=== PATIENT | male | born 1960 | race Caucasian/White ===

== ENCOUNTER 2022-08-25 06:48 | Emergency (ER) | payer BC, OTHER ==
--- NOTE | 2022-08-25 07:21 | ED Physician Documentation ---
PD HPI CHEST PAIN - Stated complaint Stated Complaint: CHEST PX - Chief complaint Chief Complaint: Cardiac - History obtained from History obtained from: Patient - Additional information Additional information: Patient is a 61-year-old male with a history of hypertension presenting for evaluation of left-sided chest pain that started at 5 AM as he was brushing his teeth getting ready for work. He describes it as a cramping. He reports some radiation to his left shoulder. It has dulled since onset. He denies dizziness, difficulty breathing, nausea, vomiting, diarrhea. It is worse with stretching movements - denies known injury. He denies any known alleviating factors. He takes daily aspirin and has taken that today. 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 Denies any previous cardiac work-up.Denies recent travel, leg swelling, history of PE or DVT. Review of Systems Constitutional: denies: Fever Cardiac: reports: Chest pain / pressure Respiratory: denies: Dyspnea, Cough GI: denies: Abdominal Pain, Nausea, Vomiting Musculoskeletal: denies: Back pain, Extremity swelling Neurologic: denies: Headache PD PAST MEDICAL HISTORY - Past Medical History Cardiovascular: None Respiratory: None Endocrine/Autoimmune: None GI: None : None HEENT: None Psych: None Musculoskeletal: Osteoarthritis, Other Derm: None - Past Surgical History Ortho: Carpal Tunnel surgery - Present Medications Home Medications: Ambulatory Orders Medication Instructions Recorded Confirmed Aspirin [Gus] 325 mg PO ONCE 08/25/22 08/25/22 Multivitamin/Iron/Folic Acid 1 tab PO DAILY 08/25/22 08/25/22 [Centrum Adults Tablet] - Allergies Allergies/Adverse Reactions: Allergies Allergy/AdvReac Type Severity Reaction Status Date / Time No Known Drug Allergies Allergy Verified 10/10/13 14:13 PD ED PE NORMAL - General General: Alert and oriented X 3, No acute distress, Well developed/nourished - HEENT HEENT: Atraumatic, Moist mucous membranes - Neck Neck: Supple, no meningeal sign - Cardiac Cardiac: RRR, No murmur, Strong equal pulses, Other (No chest wall tenderness, rashes or crepitus) - Respiratory Respiratory: No respiratory distress, Clear bilaterally - Abdomen Abdomen: Normal bowel sounds, Soft, Non tender, Non distended - Derm Derm: Warm and dry - Extremities Extremities: No edema - Neuro Neuro: Normal speech Results - Vitals Vitals: Vital Signs - 24 hr 08/25/22 08/25/22 08/25/22 09:26 10:12 10:18 Temperature 36.9 C Heart Rate 58 L 55 L Respiratory 11 L 20 Rate Blood Pressure 162/62 H 162/62 H O2 Saturation 97 96 Oxygen O2 Source Room air - EKG (time done) 0650 Rate: Rate (enter#) (61) Rhythm: NSR [place]: LAD Intervals: Other (QTC 486) Ischemia: No: ST elevation c/w ischemia, ST depression Compare to prior EKG: Old EKG unavailable 1009 Rate: Rate (enter#) (58) Rhythm: Sinus bradycardia Ischemia: No: ST elevation c/w ischemia, ST depression - Labs Labs: Laboratory Tests 08/25/22 08/25/22 08/25/22 07:16 07:16 07:16 WBC 6.8 RBC 4.97 Hgb 15.1 Hct 43.6 MCV 87.7 MCH 30.4 MCHC 34.6 RDW 12.1 Plt Count 254 MPV 9.2 Neut # (Auto) 3.7 Lymph # (Auto) 2.0 [place] # (Auto) 0.8 Eos # (Auto) 0.3 Baso # (Auto) 0.1 Absolute Nucleated RBC 0.00 Nucleated RBC % 0.0 Sodium 137 Potassium 4.0 Chloride 105 Carbon Dioxide 25 Anion Gap 7.0 BUN 32 H Creatinine 0.8 Estimated GFR (MDRD) 99 Glucose 110 H Calcium 9.3 Magnesium 2.1 Total Bilirubin 0.9 AST 21 ALT 29 Alkaline Phosphatase 37 L Troponin I High Sens 5.2 Total Protein 7.3 Albumin 4.1 Globulin 3.2 Albumin/Globulin Ratio 1.3 Lipase 129 H 08/25/22 09:30 WBC RBC Hgb Hct MCV MCH MCHC RDW Plt Count MPV Neut # (Auto) Lymph # (Auto) [place] # (Auto) Eos # (Auto) Baso # (Auto) Absolute Nucleated RBC Nucleated RBC % Sodium Potassium Chloride Carbon Dioxide Anion Gap BUN Creatinine Estimated GFR (MDRD) Glucose Calcium Magnesium Total Bilirubin AST ALT Alkaline Phosphatase Troponin I High Sens 5.1 Total Protein Albumin Globulin Albumin/Globulin Ratio Lipase PD MEDICAL DECISION MAKING - ED course Complexity details: reviewed results, re-evaluated patient, d/w patient ED course: Patient brought in for evaluation of chest pain that started this morning. EKG is negative for acute ischemia. Troponin is negative. Chest x-ray is clear. Patient reports symptoms are worse with stretching movements. Repeat EKG and troponin are essentially unchanged. Patient feeling better while here. Symptoms seem atypical for ACS and he is low risk for ACS based on the heart score.Doubt pulmonary embolism as he has no lower extremity swelling or risk factors. Doubt dissection as pain is not migratory. Patient was counseled on need for close follow-up with his primary care doctor as well as concerning symptoms to return for. 0825 - Pt sleeping. Let the patient up to review his results. He reports still having some mild discomfort that he notices when he is stretching or moving in certain ways in the bed.Discussed plan for repeat troponin. Initial high-sensitivity troponin is negative. Patient is considered low risk for ACS based on the heart score. Departure - Departure Disposition: 01 Home, Self Care Clinical Impression: Chest pain Condition: Stable Instructions: ED Chest Pain Atypical Unkn Cause Follow-Up: Bryant He MD [Primary Care Provider] - Comments: The exact cause of your chest pain is unclear. Your EKG And cardiac markers do not show signs of a heart attack at this time. However you may need further testing of your heart including a stress test. I recommend calling your primary care doctor today to arrange for close follow-up. If you have any worsening symptoms please return to the emergency department. Your chest x-ray is clear with no signs of pneumonia or fluid in your lungs. Forms: Activity restrictions Discharge Date/Time: 08/25/22 10:25
[2022-08-25 07:31] LABS: BASOPHILS # (AUTO) 0.1 10^3/uL (0.0-0.1); BASOPHILS % (AUTO) 1.2 %; EOSINOPHILS # (AUTO) 0.3 10^3/uL (0.0-0.7); EOSINOPHILS % (AUTO) 4.7 %; HCT - HEMATOCRIT 43.6 % (42.0-52.0); HGB - HEMOGLOBIN 15.1 g/dL (14.0-18.0); LYMPHOCYTES % (AUTO) 28.7 %; MEAN CORPUSCULAR HEMOGLOBIN 30.4 pg (27.0-31.0); MEAN CORPUSCULAR HGB CONC 34.6 g/dL (32.0-36.0); MEAN CORPUSCULAR VOLUME 87.7 fL (80.0-94.0); MEAN PLATELET VOLUME 9.2 fL (7.4-11.4); MONOCYTES # (AUTO) 0.8 10^3/uL (0.0-1.0); NEUTROPHILS # (AUTO) 3.7 10^3/uL (1.5-6.6); NEUTROPHILS % (AUTO) 54.3 %; PLT - PLATELET COUNT 254 10^3/uL (130-450); RED BLOOD COUNT 4.97 10^6/uL (4.70-6.10); RED CELL DISTRIBUTION WIDTH 12.1 % (12.0-15.0); WHITE BLOOD COUNT 6.8 x10^3/uL (4.8-10.8)
[2022-08-25 07:32] LABS: ALBUMIN 4.1 g/dL (3.2-5.5); ALBUMIN/GLOBULIN RATIO 1.3 (1.0-2.2); BILIRUBIN,TOTAL 0.9 mg/dL (0.2-1.0); CALCIUM 9.3 mg/dL (8.5-10.3); CREATININE 0.8 mg/dL (0.6-1.2); MAGNESIUM 2.1 mg/dL (1.7-2.8); TOTAL PROTEIN 7.3 g/dL (6.7-8.2)
--- NOTE | 2022-08-25 08:15 | XRAY Report ---
PROCEDURE: Chest 1 View X-Ray INDICATIONS: CP TECHNIQUE: One view of the chest was acquired. COMPARISON: None FINDINGS: Surgical changes and devices: None. Lungs and pleura: No pleural effusions or pneumothorax. Lungs are clear. Mediastinum: Mediastinal contours appear normal. Heart size is borderline enlarged. Bones and chest wall: No suspicious bony lesions. Overlying soft tissues appear unremarkable. IMPRESSION: No acute pulmonary process. The above findings are concordant with preliminary report. Reviewed by: Laurie Jackson MD on 08/25/2022 8:13 AM PDT Approved by: Laurie Jackson MD on 08/25/2022 8:13 AM PDT Station ID: [id number]
[2022-08-25 09:26] VITALS: BP 162/62
== END 2022-08-25 10:25 | disposition home or self-care (01) ==
LOC: ED 06:48
DX: R07.9 Chest pain, unspecified (principal); I10 Essential (primary) hypertension
CPT/HCPCS: 36415; 80053; 83690; 83735; 84484; 85025; 93005; 99283; 99284

== ENCOUNTER 2023-10-20 19:26 | Inpatient (IN) | payer BC ==
[2023-10-20 20:22] LABS: BASOPHILS % (AUTO) 0.3 %; EOSINOPHILS % (AUTO) 0.2 %; HCT - HEMATOCRIT 43.5 % (42.0-52.0); HGB - HEMOGLOBIN 13.9 g/dL (14.0-18.0); LYMPHOCYTES % (AUTO) 7.5 %; MEAN CORPUSCULAR HEMOGLOBIN 29.1 pg (27.0-31.0); MEAN CORPUSCULAR VOLUME 91.2 fL (80.0-94.0); MEAN PLATELET VOLUME 9.1 fL (7.4-11.4); MONOCYTES % (AUTO) 10.6 %; NEUTROPHILS % (AUTO) 81.1 %; PLT - PLATELET COUNT 246 10^3/uL (130-450); RED BLOOD COUNT 4.77 10^6/uL (4.70-6.10); RED CELL DISTRIBUTION WIDTH 12.2 % (12.0-15.0); WHITE BLOOD COUNT 15.2 x10^3/uL (4.8-10.8)
[2023-10-20 20:24] LABS: ABNORMAL LYMPHS % (MANUAL) 0 %; BAND NEUTROPHILS % (MANUAL) 0 %
[2023-10-20 20:33] LABS: BILIRUBIN,URINE NEGATIVE (NEGATIVE); CLARITY,URINE CLEAR (CLEAR); GLUCOSE, URINE (UA) NEGATIVE (NEGATIVE); KETONES,URINE (UA) 40 mg/dL (NEGATIVE); LEUKOCYTE ESTERASE, URINE NEGATIVE (NEGATIVE); NITRITE,URINE NEGATIVE (NEGATIVE); OCCULT BLOOD,URINE NEGATIVE (NEGATIVE); PROTEIN,URINE TRACE mg/dL (NEGATIVE); UROBILINOGEN,URINE 2 E.U./dL (NORMAL)
[2023-10-20 20:36] LABS: ALBUMIN 4.4 g/dL (3.2-5.5); ALBUMIN/GLOBULIN RATIO 1.8 (1.0-2.2); CALCIUM 9.6 mg/dL (8.5-10.3); CREATININE 0.9 mg/dL (0.6-1.3); TOTAL PROTEIN 6.9 g/dL (6.4-8.9)
[2023-10-20 20:43] LABS: LYMPHOCYTES # (MANUAL) 1.5 10^3/uL (1.5-3.5); LYMPHOCYTES % (MANUAL) 5 %; MONOCYTES # (MANUAL) 2.4 10^3/uL (0.0-1.0); NEUTROPHILS # (MANUAL) 11.2 10^3/uL (1.5-6.6); REACTIVE LYMPHS % (MANUAL) 5 %
[2023-10-20 20:44] LABS: DIFFERENTIAL COMMENT MANUAL DIFFERENTIAL; PLATELET ESTIMATE, MANUAL NORMAL (130-450,000) (NORMAL); PLATELET MORPHOLOGY NORMAL APPEARANCE (NORMAL); RBC MORPHOLOGY (MULTIPLE) NORMAL APPEARANCE (NORMAL)
[2023-10-20] MEDS ORDERED: MORPHINE 2 MG/ML CARPUJECT IVP STA (22:44)
[2023-10-20] MEDS ORDERED: SODIUM CHLORIDE 0.9% 1,000 ML IV STA (22:44)
[2023-10-20] MEDS ORDERED: ONDANSETRON 4 MG/2 ML VIAL IVP STA (22:44)
[2023-10-20] MEDS ORDERED: ACETAMINOPHEN 325 MG TABLET PO STA (23:19)
--- NOTE | 2023-10-20 23:23 | ED Physician Documentation ---
PD HPI ABD PAIN - Stated complaint Stated Complaint: ABD PX - Chief complaint Chief Complaint: Abd Pain - History obtained from History obtained from: Patient - Additional information Additional information: Patient is a 63-year-old male with a history of hypertension presenting for evaluation of right lower quadrant abdominal pain that has been present since Thursday. He has been worsening. He did eat breakfast but has had a decreased appetite throughout the day. Moving and changing positions makes it worse. No associated nausea, vomiting or diarrhea. No dysuria or hematuria. Has noted a fever tonight. Denies prior abdominal surgeries. Review of Systems Constitutional: reports: Fever Cardiac: denies: Chest pain / pressure Respiratory: denies: Dyspnea GI: reports: Abdominal Pain. denies: Vomiting PD PAST MEDICAL HISTORY - Past Medical History Cardiovascular: None Respiratory: None Endocrine/Autoimmune: None GI: None : None HEENT: None Psych: None Musculoskeletal: Osteoarthritis, Other Derm: None - Past Surgical History Ortho: Carpal Tunnel surgery - Present Medications Home Medications: Ambulatory Orders Medication Instructions Recorded Confirmed Aspirin [Gus] 325 mg PO ONCE 08/25/22 08/25/22 Multivitamin/Iron/Folic Acid 1 tab PO DAILY 08/25/22 08/25/22 [Centrum Adults Tablet] - Allergies Allergies/Adverse Reactions: Allergies Allergy/AdvReac Type Severity Reaction Status Date / Time No Known Drug Allergies Allergy Verified 10/20/23 20:07 - Social History Does the pt smoke?: No Smoking Status: Never smoker PD ED PE NORMAL - General General: Alert and oriented X 3, No acute distress, Well developed/nourished - HEENT HEENT: Atraumatic, Moist mucous membranes, Pharynx benign - Neck Neck: Supple, no meningeal sign - Cardiac Cardiac: RRR, No murmur - Respiratory Respiratory: No respiratory distress, Clear bilaterally - Abdomen Abdomen: Normal bowel sounds, Soft, Non distended, Other (Right lower quadrant abdominal tenderness, no mass) - Derm Derm: Warm and dry - Extremities Extremities: No edema Results - Vitals Vitals: Vital Signs - 24 hr 10/20/23 10/20/23 10/21/23 19:59 23:27 01:00 Temperature 38.0 C H 37.7 C Heart Rate 105 H 84 85 Heart Rate [ Brachial] Respiratory 17 17 16 Rate Blood Pressure 147/57 H 126/63 138/59 H Blood Pressure [Right Brachial artery] O2 Saturation 97 97 94 10/21/23 10/21/23 10/21/23 02:00 04:00 04:31 Temperature 37.0 C Heart Rate 77 78 Heart Rate [ 85 Brachial] Respiratory 16 18 18 Rate Blood Pressure 121/60 137/61 H Blood Pressure 129/67 [Right Brachial artery] O2 Saturation 95 98 96 Oxygen O2 Source Room air - Labs Labs: Laboratory Tests 10/20/23 10/20/23 10/20/23 20:15 20:17 20:17 WBC 15.2 H RBC 4.77 Hgb 13.9 L Hct 43.5 MCV 91.2 MCH 29.1 MCHC 32.0 RDW 12.2 Plt Count 246 MPV 9.1 Neut # (Auto) Not Reportable Lymph # (Auto) Not Reportable [place] # (Auto) Not Reportable Eos # (Auto) Not Reportable Baso # (Auto) Not Reportable Absolute Nucleated RBC Not Reportable Total Counted 100 Band Neuts % (Manual) 0 Reactive Lymphs % (Man) 5 Abnorm Lymph % (Manual) 0 Nucleated RBC % Not Reportable Neutrophils # (Manual) 11.2 H Lymphocytes # (Manual) 1.5 Monocytes # (Manual) 2.4 H Eosinophils # (Manual) 0.0 Basophils # (Manual) 0.0 Differential Comment MANUAL DIFFERENTIAL Platelet Estimate NORMAL (130-450,000) Platelet Morphology NORMAL APPEARANCE RBC Morph Micro Appear NORMAL APPEARANCE Sodium 134 L Potassium 4.0 Chloride 100 L Carbon Dioxide 26 Anion Gap 8.0 BUN 14 Creatinine 0.9 Estimated GFR (MDRD) 86 L Glucose 111 H Lactic Acid Calcium 9.6 Total Bilirubin 2.0 H AST 13 ALT 14 Alkaline Phosphatase 39 L Total Protein 6.9 Albumin 4.4 Globulin 2.5 Albumin/Globulin Ratio 1.8 Lipase 12 Urine Color DARK YELLOW Urine Clarity CLEAR Urine pH 7.0 Ur Specific [place] 1.010 Urine Protein TRACE Urine Glucose (UA) NEGATIVE Urine Ketones 40 H Urine Occult Blood NEGATIVE Urine Nitrite NEGATIVE Urine Bilirubin NEGATIVE Urine Urobilinogen 2 H Ur Leukocyte Esterase NEGATIVE Ur Microscopic Review NOT INDICATED Urine Culture Comments NOT INDICATED 10/20/23 23:00 WBC RBC Hgb Hct MCV MCH MCHC RDW Plt Count MPV Neut # (Auto) Lymph # (Auto) [place] # (Auto) Eos # (Auto) Baso # (Auto) Absolute Nucleated RBC Total Counted Band Neuts % (Manual) Reactive Lymphs % (Man) Abnorm Lymph % (Manual) Nucleated RBC % Neutrophils # (Manual) Lymphocytes # (Manual) Monocytes # (Manual) Eosinophils # (Manual) Basophils # (Manual) Differential Comment Platelet Estimate Platelet Morphology RBC Morph Micro Appear Sodium Potassium Chloride Carbon Dioxide Anion Gap BUN Creatinine Estimated GFR (MDRD) Glucose Lactic Acid 0.8 Calcium Total Bilirubin AST ALT Alkaline Phosphatase Total Protein Albumin Globulin Albumin/Globulin Ratio Lipase Urine Color Urine Clarity Urine pH Ur Specific [place] Urine Protein Urine Glucose (UA) Urine Ketones Urine Occult Blood Urine Nitrite Urine Bilirubin Urine Urobilinogen Ur Leukocyte Esterase Ur Microscopic Review Urine Culture Comments PD Medical Decision Making - ED course Complexity details: reviewed results, re-evaluated patient, d/w patient, d/w family ED course: Patient is a 63-year-old male presenting for evaluation of right lower quadrant abdominal pain since Thursday. Patient does have a fever here. Labs were obtained including CBC demonstrating a WBC of 15. Lactic is negative. Blood cultures have been drawn. Chemistries reviewed. CT of the abdomen and pelvis was reviewed and demonstrates findings consistent with acute appendicitis. Additionally patient has an incidental finding of an ascending thoracic aortic aneurysm. He appears to be asymptomatic. However I did review both of these results with the patient. He understands that he will be admitted for the appendicitis. He also understands that he will need follow-up for the aneurysm and that given its size may need repair. He understands the risks of an aneurysm. Family members also at the bedside. He does not have any symptoms today to suggest a leak or rupture. Patient was given IV antibiotics. He does not appear septic. Consulted with on-call general surgery. Pain controlled with IV morphine. 0245 - D/W Dr. Verma. Agrees with antibiotic choice. He will admit the patient. Plan for OR sometime today. I reviewed CT findings with the patient including findings of acute appendicitis as well as findings of an ascending thoracic aortic aneurysm at 6 cm. I explained to the patient and his family member at the bedside that he needs close follow-up and referral for this aneurysm Given its size. He does not have any chest pain or upper back pain to suggest symptoms of rupture. Departure - Departure Disposition: 66 [facility] DC/Xfer Clinical Impression: Acute appendicitis Thoracic aortic aneurysm Qualifiers: Thoracic aorta location: ascending aorta Presence of rupture: without rupture Qualified Code(s): I71.21 - Aneurysm of the ascending aorta, without rupture Condition: Stable
[2023-10-21] MEDS ORDERED: PIPERACILLIN/TAZOBACTAM 3.375 GM in SODIUM CHLORIDE 0.9% MINIBAG 100 ML IV STA (02:38)
[2023-10-21] MEDS ORDERED: SODIUM CHLORIDE 0.9% 1,000 ML IV STA (02:49)
[2023-10-21] MEDS ORDERED: SODIUM CHLORIDE FLUSH 0.9% 10 ML SYRINGE IVP PRN ×2 (03:11→11:10)
[2023-10-21] MEDS ORDERED: ONDANSETRON ODT 4 MG TABLET TL PRN ×2 (03:11→11:10)
[2023-10-21] MEDS ORDERED: MORPHINE 2 MG/ML CARPUJECT IVP STA (03:12)
[2023-10-21] MEDS ORDERED: SODIUM CHLORIDE 0.9% 1,000 ML IV SCH (04:00)
[2023-10-21] MEDS: ACETAMINOPHEN 325 MG TABLET PO PRN (05:19)
[2023-10-21] MEDS ORDERED: iohexoL-300 100 ML VIAL IVP ONE (05:25)
[2023-10-21] MEDS ORDERED: PIPERACILLIN/TAZOBACTAM 3.375 GM in SODIUM CHLORIDE 0.9% MINIBAG 100 ML IV SCH ×2 (06:00→12:00)
[2023-10-21] MEDS: PIPERACILLIN/TAZOBACTAM 3.375 GM in SODIUM CHLORIDE 0.9% MINIBAG 100 ML IV SCH ×2 (07:04→18:16)
[2023-10-21] MEDS ORDERED: BUPIVACAINE 0.25% PF 30 ML VIAL ONE ×2 (07:14→10:56)
[2023-10-21] MEDS ORDERED: BUPIVACAINE 0.25% PF 30 ML VIAL SUBQ ONE ×3 (07:27)
--- NOTE | 2023-10-21 07:27 | HISTORY & PHYSICAL EXAMINATION ---
Chief Complaint - Chief Complaint Chief Complaint: abdominal pain History of Present Illness - Admitted From Admitted From:: ED - History Obtained From Records Reviewed: yes History obtained from: pt Exam Limitations: none - History of Present Illness HPI Comment/Other: progressive abdominal pain over 2 days. now hurts entire abdomen with movement History - Past Medical History Cardiovascular: reports: None Respiratory: reports: None Neuro: reports: Other Endocrine/Autoimmune: reports: None GI: reports: None : reports: None HEENT: reports: None Psych: reports: None Musculoskeletal: reports: Osteoarthritis, Other Derm: reports: None Other Past Medical History: occular migraines, AAA, TINNITIS, glasses, states may have sleep apnea however no testing at this time, urinary hestitancy, chronic back pain r/t fx of back T7-T8 (compression fx) and no sx to back - Past Surgical History General: reports: Colonoscopy Ortho: reports: Carpal Tunnel surgery Meds/Allgy - Home Medications Home Medications: Ambulatory Orders Medication Instructions Recorded Confirmed Aspirin [Gus] 325 mg PO ONCE 08/25/22 08/25/22 Multivitamin/Iron/Folic Acid 1 tab PO DAILY 08/25/22 08/25/22 [Centrum Adults Tablet] - Allergies Allergies/Adverse Reactions: Allergies Allergy/AdvReac Type Severity Reaction Status Date / Time No Known Drug Allergies Allergy Verified 10/20/23 20:07 Review of Systems - Other Findings Other Findings: 10 pt ros as above otherwise unremarkable Exam - Vital Signs Vital Signs: Vital Signs x48h Temp Pulse Pulse Resp BP BP Pulse Ox 10/21/23 04:31 37.0 C 85 18 129/67 96 10/21/23 04:00 78 18 137/61 H 98 10/21/23 02:00 77 16 121/60 95 10/21/23 01:00 85 16 138/59 H 94 10/20/23 23:27 37.7 C 84 17 126/63 97 - Physical Exam General Appearance: positive: No acute distress, Alert Eyes Bilateral: positive: PERRL, EOMI, No scleral icterus ENT: positive: No signs of dehydration Neck: positive: No JVD, Trachea midline Respiratory: positive: No respiratory distress, Breath sounds nml Cardiovascular: positive: Regular rate & rhythm Abdomen: positive: No distention, Other (diffuse tenderness with peritoneal signs) Neurologic/Psychiatric: positive: Oriented x3 Conclusion/Plan - Problem List (1) Appendicitis with perforation Conclusion/Plan: diffuse peritonitis without abscess. plan appendectomy. parq held and consent obtained - Lab Results Fish Bones: 10/20/23 20:17 10/20/23 20:17 - Diagnostic Imaging Results Diagnostic Imaging Results: positive: Read independently (appendicitis with fecaliths and considerable surrounding free fluid consistent with rupture)
[2023-10-21] MEDS ORDERED: PROPOFOL 200 MG/20 ML VIAL IVP ONE (07:30)
[2023-10-21] MEDS ORDERED: fentaNYL 100 MCG/2 ML VIAL ONE (07:30)
[2023-10-21] MEDS ORDERED: ROCURONIUM 50 MG/5 ML VIAL ONE (07:30)
[2023-10-21] MEDS ORDERED: MIDAZOLAM 2 MG/2 ML VIAL ONE (07:30)
--- NOTE | 2023-10-21 07:35 | ANESTHESIA ---
Pre-Anesthesia VS, & Labs - Diagnosis appendicitis - Procedure lap appy Vital Signs: Temp Pulse Resp BP Pulse Ox O2 Flow Rate 37.0 C 85 18 129/67 96 10/21/23 04:31 10/21/23 04:31 10/21/23 04:31 10/21/23 04:31 10/21/23 04:31 Height: 6 ft Weight (kg): 97 kg Body Mass Index: 29.0 BMI Classification: Overweight - Lab Results Current Lab Results: Laboratory Tests 10/20/23 23:00: Lactic Acid 0.8 10/20/23 20:17: Sodium 134 L, Potassium 4.0, Chloride 100 L, Carbon Dioxide 26, Anion Gap 8.0, BUN 14, Creatinine 0.9, Estimated GFR (MDRD) 86 L, Glucose 111 H, Calcium 9.6, Total Bilirubin 2.0 H, AST 13, ALT 14, Alkaline Phosphatase 39 L, Total Protein 6.9, Albumin 4.4, Globulin 2.5, Albumin/Globulin Ratio 1.8, Lipase 12 10/20/23 20:17: WBC 15.2 H, RBC 4.77, Hgb 13.9 L, Hct 43.5, MCV 91.2, MCH 29.1, MCHC 32.0, RDW 12.2, Plt Count 246, MPV 9.1, Neut # (Auto) Not Reportable, Lymph # (Auto) Not Reportable, [place] # (Auto) Not Reportable, Eos # (Auto) Not Rep ortable, Baso # (Auto) Not Reportable, Absolute Nucleated RBC Not Reportable, Total Counted 100, Band Neuts % (Manual) 0, Reactive Lymphs % (Man) 5, Abnorm Lymph % (Manual) 0, Nucleated RBC % Not Reportable, Neutrophils # (Manual) 11.2 H, Lymphocytes # (Manual) 1.5, Monocytes # (Manual) 2.4 H, Eosinophils # (Manual) 0.0, Basophils # (Manual) 0.0, Differential Comment MANUAL DIFFERENTIAL, Platelet Estimate NORMAL (130-450,000), Platelet Morphology NORMAL APPEARANCE, RBC Morph Micro Appear NORMAL APPEARANCE Fish Bones: 10/20/23 20:17 10/20/23 20:17 Home Medications and Allergies Active Medications Acetaminophen (Acetaminophen 325 Mg Tablet) 650 mg PO Q4HR PRN PRN Reason: Pain 1 to 4, or Fever Last Admin: 10/21/23 05:19 Dose: 650 mg Hydromorphone HCl (Hydromorphone 0.5 Mg/0.5 Ml Syringe) 0.5 mg IVP Q2H PRN PRN Reason: Pain 8 to 10 Sodium Chloride (Normal Saline 0.9%) 1,000 mls @ 150 mls/hr IV .Q6H40M STA Stop: 10/21/23 09:28 Last Admin: 10/21/23 03:11 Dose: 150 mls/hr Sodium Chloride (Normal Saline 0.9%) 1,000 mls @ 100 mls/hr IV .Q10H RADHA Piperacillin Sod/Tazobactam (Sod 3.375 gm/ Sodium Chloride) 100 mls @ 25 mls/hr IV Q8H RADHA Last Admin: 10/21/23 07:04 Dose: 25 mls/hr Ondansetron HCl (Ondansetron Odt 4 Mg Tablet) 4 mg TL Q6HR PRN PRN Reason: Nausea / Vomiting Oxycodone HCl (Oxycodone 5 Mg Tablet) 5 mg PO Q4HR PRN PRN Reason: Pain 5 to 7 Sodium Chloride (Sodium Chloride Flush 0.9% 10 Ml Syringe) 10 ml IVP PRN PRN PRN Reason: NEEDED PER PROVIDER ORDERS Sodium Chloride (Sodium Chloride Flush 0.9% 10 Ml Syringe) 10 ml IVP 0100,0900,1700 [facility] Aspirin [Gus] 325 mg PO ONCE 08/25/22 Multivitamin/Iron/Folic Acid [Centrum Adults Tablet] 1 tab PO DAILY 08/25/22 Allergies/Adverse Reactions: Allergies Allergy/AdvReac Type Severity Reaction Status Date / Time No Known Drug Allergies Allergy Verified 10/20/23 20:07 Anes History & Medical History - Anesthetic History Anesthesia Complications: reports: No previous complications - Medical History Cardiovascular: reports: Hypertension Pulmonary: reports: None Gastrointestinal: reports: None Urinary: reports: None Neuro: reports: Other Musculoskeletal: reports: Osteoarthritis, Other Endocrine/Autoimmune: reports: None Blood Disorders: reports: None Skin: reports: None Smoking Status: Never smoker History of Cancer?: No Other Past Medical History: occular migraines, AAA, TINNITIS, glasses, states may have sleep apnea however no testing at this time, urinary hestitancy, chronic back pain r/t fx of back T7-T8 (compression fx) and no sx to back - Surgical History General: reports: Colonoscopy Orthopedic: reports: Carpal Tunnel surgery Exam General: Alert, Oriented x3 Dental: WNL Neck Mobility: Normal Mallampati classification: II Thyromental Distance: greater than 6 cm Respiratory: Lungs clear Cardiovascular: Regular rate Plan Anesthesia Type: General Consent for Procedure(s) Verified and Reviewed: Yes Code Status: Attempt Resuscitation ASA classification: 2-Mild systemic disease Is this case an emergency?: Yes
[2023-10-21] MEDS ORDERED: DEXAMETHASONE 4 MG/ML VIAL ONE (08:11)
[2023-10-21] MEDS ORDERED: ONDANSETRON 4 MG/2 ML VIAL ONE (08:11)
[2023-10-21] MEDS: SODIUM CHLORIDE FLUSH 0.9% 10 ML SYRINGE IVP SCH ×2 (08:13→18:28)
--- NOTE | 2023-10-21 08:35 | CT Report ---
PROCEDURE: ABDOMEN/PELVIS W INDICATIONS: RLQ pain/fever CONTRAST: Omni 300 100ml TECHNIQUE: After the administration of IV contrast, 5 mm thick sections acquired from the diaphragms to the symp hysis. 5 mm thick coronal and sagittal reformats were acquired. For radiation dose reduction, the f ollowing was used: automated exposure control, adjustment of mA and/or kV according to patient size. COMPARISON: None FINDINGS: Image quality: Good Lower chest: Basal scarring and atelectasis. Borderline cardiomegaly. Possible aortic root ectasia is partially seen. Solid organs: In the liver, adrenals, kidneys, back or Guideline subcentimeter lesions are too small to characterize, most commonly cysts. No pathologic dilation of the biliary system or pancreatic duct . Gallbladder is unremarkable. No hydronephrosis. Vessels and lymph nodes: Atherosclerotic calcifications. No abdominal aortic aneurysm or pathologic l ymph nodes by size criteria. Bowel and peritoneum: No evidence of small bowel obstruction. Moderately inflamed appendix, without obstructing stone at the neck. Appendix measures up to 2 cm. Th ere is a moderate degree of surrounding fluid. Mild inflammatory changes around the terminal ileum ma y be reactive to adjacent inflammation. No drainable rim-enhancing abscess at this time. Body wall: Unremarkable Pelvis: Bladder is unremarkable. Prostate is not well evaluated on CT. Small fat-containing right ing uinal hernia. Bones: No acute or suspicious osseous finding. IMPRESSION: Acute appendicitis. Moderate inflammatory changes and edema, with surrounding appendiceal fluid. No d rainable rim-enhancing abscess. Other findings as above. Agree with preliminary report. Reviewed by: Thomas Meléndez MD on 10/21/2023 8:34 AM PST Approved by: Thomas Meléndez MD on 10/21/2023 8:34 AM PST Station ID: [id number]
[2023-10-21] MEDS ORDERED: HYDROmorphone 0.5 MG/0.5 ML SYRINGE IVP PRN ×2 (08:36→11:10)
[2023-10-21] MEDS ORDERED: NALOXONE 0.4 MG/ML VIAL IVP PRN (08:36)
[2023-10-21] MEDS ORDERED: ONDANSETRON 4 MG/2 ML VIAL IVP PRN (08:36)
[2023-10-21] MEDS ORDERED: ATROPINE ABBOJECT 1 MG/10 ML SYRINGE IVP PRN (08:36)
[2023-10-21] MEDS ORDERED: METOCLOPRAMIDE 10 MG/2 ML VIAL IVP PRN (08:36)
[2023-10-21] MEDS ORDERED: fentaNYL 100 MCG/2 ML VIAL IVP PRN (08:36)
[2023-10-21] MEDS ORDERED: MORPHINE 2 MG/ML CARPUJECT IVP PRN (08:36)
[2023-10-21] MEDS ORDERED: ePHEDrine 50 MG/ML VIAL IVP PRN (08:36)
[2023-10-21] MEDS ORDERED: ACETAMINOPHEN 1,000 MG/100 ML 1,000 MG/100 ML BAG IV ONE (08:48)
[2023-10-21] MEDS ORDERED: LACTATED RINGERS 1,000 ML IV SCH (09:00)
[2023-10-21] MEDS ORDERED: PHENYLEPHRINE HCL 0.5 MG/5 ML AMPULE ONE (10:09)
[2023-10-21] MEDS ORDERED: SUGAMMADEX 200 MG/2 ML VIAL IVP ONE (10:33)
[2023-10-21] MEDS ORDERED: oxyCODONE 5 MG TABLET PO PRN (11:10)
[2023-10-21] MEDS ORDERED: ZOLPIDEM 5 MG TABLET PO PRN (11:10)
[2023-10-21] MEDS ORDERED: ACETAMINOPHEN 325 MG TABLET PO PRN (11:10)
[2023-10-21] MEDS ORDERED: LACTATED RINGERS 1,000 ML IV ONE (11:14)
--- NOTE | 2023-10-21 11:19 | OPERATIVE REPORT ---
Operative Report - General Procedure Date: 10/21/23 Planned Procedure: lap appendectomy Pre-Op Diagnosis: ruptured appendix with diffuse peritonitis Procedure Performed: lap converted to open appendectomy Post Op Diagnosis: same. ruptured at base with significant inflammation cecum - Procedure Note Primary Surgeon: odilon pavon Anesthesia Technique: General ET tube, Local Pathology: appendix Estimated Blood Loss (mL): 2 Drain/Tube Type: Other (none) Indications: free ruptured appendix with diffuse peritonitis Findings: as above Complications: none - Other Other Information/Narrative: Patient was prepped identified brought to the operating room and placed in supine position. Sequential compression devices were placed. Antibiotics were running at the time he came to the operating room. He was prepped and draped in a sterile fashion. Local anesthetic was given to incision areas. An infraumbilical incision was made. Dissection proceeded down to the fascia. The fascia was incised lifted upwards and abdomen entered with a Veress needle. CO2 was insufflated to a pressure of 15. A 12 mm Visiport trocar was placed with 30 degree camera. There was no evidence of injury from Veress needle or trocar placement. Under direct vision a 5 mm trocar was placed in the right upper quadrant and a 5 mm trocar was placed mid lower abdomen. The patient had tried to void prior to surgery however his bladder was quite large with nearly a liter of urine. The sigmoid colon was adherent to the cecum. It was carefully mobilized off from the cecum exposing the appendix. The cecum was carefully mobilized allowing better access to the appendix. The mesoappendix was quite large. There was purulence within the abdomen. The appendix was slowly mo bilized off from the retroperitoneum. As appendix was mobilized stool and pus under the appendix was exposed. Appendix was further mobilized revealing the rupture and 2 small pieces of stool outside the appendix. The mesoappendix was divided with a vascular load. Hemostasis was assured. The rupture of the appendix was right at the cecum and the cecum was quite hard. With gentle retraction of the appendix from the cecum. The appendix was brought out with an Endo Catch bag. It would not have been possible to staple off the base of the appendix as essentially this tissue was . An open appendectomy was then performed. A 6 cm incision was made in the right lower quadrant. Standard Aravind-Asad incision was made. Subcutaneous tissue was divided down to the external oblique. Dissection proceeded bluntly down to the internal oblique. This was in the direction of its fibers. The peritoneum was then sharply opened. The cecum was further mobilized. The 2 small pieces of stool at the base of the appendix were removed. appendix tissue was debrided down to the cecum. The hole in the cecum was closed with a running 3-0 Vicryl suture followed by interrupted 3-0 silk suture. The abdomen was thoroughly irrigated. There were no apparent complications. It was not possible to bring the omentum down. Peritoneum and transversalis fascia was closed with a running 2-0 Vicryl suture. Internal Bleich was closed and reapproximated with interrupted 2-0 Vicryl suture. External oblique was closed with a running 0 PDS. Throughout the closure the individual layers of the abdominal wall were irrigated and local anesthetic was given. Hemostasis was assured. Fascia at the infraumbilical site was closed with a running 0 Vicryl suture. Subcutaneous tissue was irrigated and left open and moist dressings applied. Tolerated the procedure well was brought to recovery in improved condition.
--- NOTE | 2023-10-21 11:42 | PHARMACY PROGRESS NOTE ---
- Best Possible Medication History Admit Date and Time: 10/21/23 1111 Processed by: Pharmacy Medication History completed: Yes Patient Interview: Pt unable to participate Secondary Source(s): Insurance records As the person ultimately responsible for medication therapy, providers are able to order a medication from an existing home medication list in [facility] via the "Reconcile Routine" prior to Confirmation of that medication by technician support association. Such practice is discouraged except when the physician, in their clinical judgment, deems that a medical need exists for a medication without regard to previous use.
[2023-10-21] MEDS: D5.45NS W/20 MEQ KCL 1,000 ML IV SCH (12:07)
--- NOTE | 2023-10-21 14:29 | ANESTHESIA POST OP EVALUATION ---
Anesthesia Post Eval - Post Anesthesia Eval Vitals: Last Vital Signs Temp 36.6 C 10/21/23 13:50 Pulse 74 10/21/23 13:50 Resp 18 10/21/23 13:50 BP 129/52 L 10/21/23 13:50 Pulse Ox 97 10/21/23 13:50 O2 Flow Rate 2 10/21/23 12:36 CV Function Including HR & BP: Stable Pain Control: Satisfactory Nausea & Vomiting: Negative Mental Status: Baseline Respiratory Status: Airway Patent Hydration Status: Satisfactory Anesthesia Complications: None
[2023-10-21] MEDS ORDERED: SODIUM CHLORIDE FLUSH 0.9% 10 ML SYRINGE IVP SCH (17:00)
[2023-10-21] MEDS: oxyCODONE 5 MG TABLET PO PRN (22:32)
[2023-10-22] MEDS: PIPERACILLIN/TAZOBACTAM 3.375 GM in SODIUM CHLORIDE 0.9% MINIBAG 100 ML IV SCH ×4 (00:14→23:48)
[2023-10-22] MEDS: D5.45NS W/20 MEQ KCL 1,000 ML IV SCH ×3 (00:15→20:26)
[2023-10-22] MEDS: SODIUM CHLORIDE FLUSH 0.9% 10 ML SYRINGE IVP SCH ×4 (00:42→23:50)
[2023-10-22] MEDS: oxyCODONE 5 MG TABLET PO PRN ×3 (04:19→23:50)
[2023-10-22] MEDS: HEPARIN 5,000 UNIT/ML VIAL SUBQ SCH ×2 (08:54→20:26)
[2023-10-22] MEDS: ACETAMINOPHEN 325 MG TABLET PO PRN ×2 (09:04→16:16)
--- NOTE | 2023-10-22 11:13 | PROVIDER PROGRESS NOTE ---
Subjective - Subjective Pt reports feeling: Improved (no nausea. passing some gas) Objective - Vital Signs/Intake & Output Vital Signs: Vital Signs x48h Temp Pulse Resp BP Pulse Ox 10/22/23 08:00 36.9 C 75 20 130/57 L 91 L 10/22/23 04:17 36.8 C 68 20 114/56 L 91 L Intake & Output: Intake & Output 10/19/23 10/20/23 10/21/23 10/22/23 23:59 23:59 23:59 23:59 Intake Total 2340 2100 Output Total 600 350 Balance 1740 1750 - Objective General Appearance: positive: No acute distress, Alert Eyes Bilateral: positive: PERRL, EOMI Neck: positive: No JVD, Trachea midline Respiratory: positive: No respiratory distress Abdomen: positive: Non-tender, No distention, Other (dressings c/d/i. no erythema) Neurologic/Psychiatric: positive: Oriented x3 - Lab Results Fish Bones: 10/20/23 20:17 10/20/23 20:17 Assessment/Plan - Problem List (1) Appendicitis with perforation Impression: urinary retention with full bladder 1 liter at time of surgery. plan ivey out tomorrow am ruptured appendix with small stool and pus in abdomen. diet clears. continue abxs today. moist dressing change to umbilical incision and rlq incision bid starting today., plan delayed closure, steri strip rlq incision pod 4
[2023-10-22] MEDS: HYDROmorphone 0.5 MG/0.5 ML SYRINGE IVP PRN (14:09)
[2023-10-22] MEDS: KETOROLAC 15 MG/ML VIAL IVP SCH ×2 (18:03→23:50)
[2023-10-22] MEDS: FAMOTIDINE 20 MG TABLET PO SCH (20:26)
[2023-10-23] MEDS: oxyCODONE 5 MG TABLET PO PRN (06:08)
[2023-10-23] MEDS: KETOROLAC 15 MG/ML VIAL IVP SCH ×4 (06:09→23:58)
[2023-10-23] MEDS: PIPERACILLIN/TAZOBACTAM 3.375 GM in SODIUM CHLORIDE 0.9% MINIBAG 100 ML IV SCH ×3 (07:53→23:48)
[2023-10-23] MEDS: HEPARIN 5,000 UNIT/ML VIAL SUBQ SCH ×2 (09:14→20:35)
[2023-10-23] MEDS: SODIUM CHLORIDE FLUSH 0.9% 10 ML SYRINGE IVP SCH ×2 (09:14→18:56)
[2023-10-23] MEDS: FAMOTIDINE 20 MG TABLET PO SCH ×2 (09:14→20:34)
--- NOTE | 2023-10-23 15:30 | PROVIDER PROGRESS NOTE ---
Subjective - Subjective Pt reports feeling: Improved (feeling better. passing gas and having bm; however, no appetite and some bloating) Objective - Vital Signs/Intake & Output Vital Signs: Vital Signs x48h Temp Pulse Resp BP Pulse Ox 10/23/23 08:00 36.7 C 76 20 143/63 H 99 Intake & Output: Intake & Output 10/20/23 10/21/23 10/22/23 10/23/23 23:59 23:59 23:59 23:59 Intake Total 2340 3957.500 1200.00 Output Total 600 1025 308 Balance 1740 2932.500 892.00 - Objective General Appearance: positive: No acute distress, Alert Respiratory: positive: No respiratory distress Abdomen: positive: Other (mild distension no erythema) Neurologic/Psychiatric: positive: Oriented x3 - Lab Results Fish Bones: 10/20/23 20:17 10/20/23 20:17 Assessment/Plan - Problem List (1) Appendicitis with perforation Impression: ileus. clears as tolerated continue ivf ivey is out and voiding ok home when less distended and tolerating clears well.
[2023-10-23] MEDS: ACETAMINOPHEN 325 MG TABLET PO PRN ×2 (15:40→20:38)
[2023-10-23] MEDS: D5.45NS W/20 MEQ KCL 1,000 ML IV SCH ×2 (17:43→22:10)
[2023-10-24] MEDS: SODIUM CHLORIDE FLUSH 0.9% 10 ML SYRINGE IVP SCH ×4 (00:02→23:46)
[2023-10-24] MEDS: D5.45NS W/20 MEQ KCL 1,000 ML IV SCH ×2 (06:49→22:51)
[2023-10-24] MEDS: PIPERACILLIN/TAZOBACTAM 3.375 GM in SODIUM CHLORIDE 0.9% MINIBAG 100 ML IV SCH ×3 (06:53→23:46)
[2023-10-24] MEDS: HEPARIN 5,000 UNIT/ML VIAL SUBQ SCH ×2 (09:21→21:57)
[2023-10-24] MEDS: FAMOTIDINE 20 MG TABLET PO SCH ×2 (09:21→21:57)
[2023-10-24 10:01] LABS: HCT - HEMATOCRIT 42.7 % (42.0-52.0); HGB - HEMOGLOBIN 13.9 g/dL (14.0-18.0); MEAN CORPUSCULAR HEMOGLOBIN 29.5 pg (27.0-31.0); MEAN CORPUSCULAR HGB CONC 32.6 g/dL (32.0-36.0); MEAN CORPUSCULAR VOLUME 90.7 fL (80.0-94.0); MEAN PLATELET VOLUME 9.9 fL (7.4-11.4); RED BLOOD COUNT 4.71 10^6/uL (4.70-6.10); WHITE BLOOD COUNT 10.6 x10^3/uL (4.8-10.8)
[2023-10-24 10:47] LABS: CALCIUM 8.6 mg/dL (8.5-10.3); CREATININE 0.6 mg/dL (0.6-1.3); POTASSIUM 3.5 mmol/L (3.5-4.5)
--- NOTE | 2023-10-24 12:26 | PROVIDER PROGRESS NOTE ---
Subjective - Prog Note Date Prog Note Date: 10/24/23 - Subjective Pt reports feeling: Improved (had some chest discomfort earlier. thinks it was anxiety. passing gas. some nausea. small emesis earlier) Objective - Vital Signs/Intake & Output Vital Signs: Vital Signs x48h Temp Pulse Resp BP Pulse Ox 10/24/23 08:00 36.7 C 81 20 147/55 H 94 Intake & Output: Intake & Output 10/21/23 10/22/23 10/23/23 10/24/23 23:59 23:59 23:59 23:59 Intake Total 2340 3957.500 1902.50 1273.75 Output Total 600 1025 308 Balance 1740 2932.500 1594.50 1273.75 - Objective General Appearance: positive: No acute distress, Alert ENT: positive: No signs of dehydration Neck: positive: No JVD Respiratory: positive: No respiratory distress Abdomen: positive: Other (mild distension. dressings c/d/i no erythema) - Lab Results Fish Bones: 10/24/23 09:57 10/24/23 09:57 Other Labs: Lab Results x24hrs 10/24/23 10/24/23 Range/Units 09:57 09:57 WBC 10.6 (4.8-10.8) x10^3/uL RBC 4.71 (4.70-6.10) 10^6/uL Hgb 13.9 L (14.0-18.0) g/dL Hct 42.7 (42.0-52.0) % MCV 90.7 (80.0-94.0) fL MCH 29.5 (27.0-31.0) pg MCHC 32.6 (32.0-36.0) g/dL RDW 12.0 (12.0-15.0) % Plt Count 315 (130-450) 10^3/uL MPV 9.9 (7.4-11.4) fL Sodium 133 L (135-145) mmol/L Potassium 3.5 (3.5-4.5) mmol/L Chloride 104 (101-111) mmol/L Carbon Dioxide 22 (21-32) mmol/L Anion Gap 7.0 (6-13) BUN 16 (6-20) mg/dL Creatinine 0.6 (0.6-1.3) mg/dL Estimated GFR (MDRD) 137 (>89) Glucose 130 H (74-104) mg/dL Calcium 8.6 (8.5-10.3) mg/dL Assessment/Plan - Problem List (1) Appendicitis with perforation Impression: possible palpitations earlier. thinks it was more likely anxiety. never in the hospital before. does not want any medication for it. tele ordered and labs done. labs normal. wbc down to normal ileus. clears as tolerated. plan closure rlq incision with steri strips tomorrow. home when tolerating clears well.
[2023-10-24] MEDS: HYDROmorphone 0.5 MG/0.5 ML SYRINGE IVP PRN (14:16)
[2023-10-24] MEDS: ONDANSETRON 4 MG/2 ML VIAL IVP PRN (14:16)
[2023-10-24] MEDS: ACETAMINOPHEN 325 MG TABLET PO PRN ×2 (17:37→21:57)
[2023-10-24] MEDS: oxyCODONE 5 MG TABLET PO PRN ×2 (17:37→21:57)
[2023-10-25] MEDS: ONDANSETRON 4 MG/2 ML VIAL IVP PRN (06:14)
[2023-10-25] MEDS: oxyCODONE 5 MG TABLET PO PRN (06:14)
[2023-10-25] MEDS: PIPERACILLIN/TAZOBACTAM 3.375 GM in SODIUM CHLORIDE 0.9% MINIBAG 100 ML IV SCH (07:55)
[2023-10-25] MEDS: FAMOTIDINE 20 MG TABLET PO SCH (08:01)
[2023-10-25] MEDS: HEPARIN 5,000 UNIT/ML VIAL SUBQ SCH (08:01)
[2023-10-25] MEDS: SODIUM CHLORIDE FLUSH 0.9% 10 ML SYRINGE IVP SCH (08:02)
[2023-10-25] MEDS: HYDROmorphone 0.5 MG/0.5 ML SYRINGE IVP PRN (10:20)
--- NOTE | 2023-10-25 12:09 | Discharge Plan ---
Discharge Plan Problem Reviewed?: Yes Disposition: Home, Self Care Condition: Good Diet: Regular (as tolerated) Activity Restrictions: Activity as Tolerated Shower Restrictions: No (keep right lower incision dry or covered for 3 to 5 days) Driving Restrictions: Yes (no driving until walking around normal ) Health Concerns: recent ruptured appendix. call for fever over 101, incision area redness, continued nausea and vomiting, any concerns [phone] Plan of Treatment: dry dressings to incision areas once or twice a day as needed moist gauze into umbilical incision area until nearly closed Assessment: much improved after surgery Additional Instructions or Follow Up instructions: call the surgery office to make a follow up appointment [phone] No Smoking: If you smoke, Please STOP! Call for help. Follow-up with: Umesh Verma MD [Provider Admit Priv/Credential] -
--- NOTE | 2023-10-25 12:15 | DISCHARGE SUMMARY ---
"Discharge Summary Admit Date: 10/21/23 Discharge Date: 10/25/23 Code Status: Attempt Resuscitation Discharge Facility Name: [facility] - DIAGNOSES Admission Diagnoses: ruptured appendix Discharge Diagnoses with Status of Each Condition: home in good condition - HPI History of Present Illness: present with 3 days abdominal pain, fever, diffuse peritonitis - CONSULTS | PROCEDURES Procedures: laparoscopic converted to open appendectomy due to ruptured appendix at the base dressing care to open incisions delayed primary closure right lower quadrant incision 10/25 ivey catheter for urinary retention - HOSPITAL COURSE Hospital Course: slow improvement each day. by 10/25 voiding improved, nausea resolved, tolerating clears well. afebrile since surgery and normal wbc prior to discharge - ALLERGIES Allergies/Adverse Reactions: Allergies Allergy/AdvReac Type Severity Reaction Status Date / Time No Known Drug Allergies Allergy Verified 10/20/23 20:07 - MEDICATIONS Home Medications: Ambulatory Orders Medication Instructions Recorded Confirmed Cholecalciferol [Vitamin D3] 50 mcg PO DAILY 10/21/23 10/21/23 Losartan Potassium 100 mg PO DAILY 10/21/23 10/21/23 Melatonin [Melatoninmax] 10 mg PO QPM 10/21/23 10/21/23 Multivitamin [Theragran] 1 tab PO DAILY 10/21/23 10/21/23 - PHYSICAL EXAM AT DISCHARGE General Appearance: positive: No acute distress, Alert Eyes Bilateral: positive: PERRL, EOMI Respiratory: positive: No respiratory distress Abdomen: positive: Non-tender, No distention, Other (incisions clean. rlq incision closed with steri strips) Neurologic/Psychiatric: positive: Oriented x3 - LABS Result Diagrams: 10/24/23 09:57 10/24/23 09:57 - FOLLOW UP Follow Up: odilon pavon surgery call to make an appt [phone]"
[2023-10-25 13:25] VITALS: BP 149/64; O2SAT 97
== END 2023-10-25 13:25 | disposition home or self-care (01) | DRG 399 ==
LOC: ED 19:26 → MS2 10-21 03:11 → SDS 10-21 03:11 → MS2 10-21 11:11
PROVIDERS: ADMIT Surgery; ATTEND Surgery
PROC: 0WJG4ZZ Inspection of Peritoneal Cavity, Percutaneous Endoscopic Approach (ICD-10-PCS; 2023-10-21)
PROC: 0DTJ0ZZ Resection of Appendix, Open Approach (ICD-10-PCS; principal; 2023-10-21 07:45)
PROC: 0WQFXZZ Repair Abdominal Wall, External Approach (ICD-10-PCS; 2023-10-25)
DX: K35.201 Acute appendicitis with generalized peritonitis, with perforation, without abscess (principal); I71.21 Aneurysm of the ascending aorta, without rupture; I10 Essential (primary) hypertension; R33.9 Retention of urine, unspecified
CPT/HCPCS: 36415; 74177; 80048; 80053; 81003; 83605; 83690; 85025; 85027; 87040; A9270; J0131; J1170; J2372; J7120; Q9967; 81001; 82803; 87086; 96365; 96375; 96376; 99285

== ENCOUNTER 2024-03-30 08:08 | Outpatient (CLI) | payer BC | END 2024-03-30 23:59 | disposition short-term general hospital (02) | LOC: EMS 08:08 | DX: I48.91 Unspecified atrial fibrillation (principal) | CPT/HCPCS: A0425; A0429 ==

== ENCOUNTER 2024-07-01 07:14 | Outpatient (CLI) | payer BC ==
[2024-07-01 08:05] LABS: ALBUMIN 4.6 g/dL (3.2-5.5); ALBUMIN/GLOBULIN RATIO 1.7 (1.0-2.2); ALKALINE PHOSPHATASE 41 IU/L (42-121); ALT ALANINE AMINOTRANSFERASE 21 IU/L (10-60); AST ASPARTATE AMINOTRANSFERASE 18 IU/L (10-42); BILIRUBIN,TOTAL 0.6 mg/dL (0.2-1.0); BUN - BLOOD UREA NITROGEN 25 mg/dL (6-20); CALCIUM 9.6 mg/dL (8.5-10.3); CARBON DIOXIDE - CO2 29 mmol/L (21-32); CHLORIDE 107 mmol/L (101-111); CHOLESTEROL 182 mg/dL; CREATININE 0.8 mg/dL (0.6-1.3); GFR - MDRD 98 (>89); GLUCOSE 101 mg/dL (74-104); HDL CHOLESTEROL 46 mg/dL; LDL CHOLESTEROL,CALCULATED 110 mg/dL; LDL/HDL RATIO 2.4 (<3.6); POTASSIUM 4.2 mmol/L (3.5-4.5); SODIUM 140 mmol/L (135-145); TOTAL PROTEIN 7.3 g/dL (6.4-8.9); TRIGLYCERIDES 129 mg/dL; VLDL CHOLESTEROL 26 mg/dL
[2024-07-01 08:06] LABS: BASOPHILS # (AUTO) 0.1 10^3/uL (0.0-0.1); BASOPHILS % (AUTO) 1.3 %; EOSINOPHILS # (AUTO) 0.3 10^3/uL (0.0-0.7); EOSINOPHILS % (AUTO) 4.7 %; HGB - HEMOGLOBIN 15.1 g/dL (14.0-18.0); LYMPHOCYTES # (AUTO) 1.7 10^3/uL (1.5-3.5); LYMPHOCYTES % (AUTO) 31.3 %; MEAN CORPUSCULAR HEMOGLOBIN 29.2 pg (27.0-31.0); MEAN CORPUSCULAR HGB CONC 32.8 g/dL (32.0-36.0); MEAN PLATELET VOLUME 9.7 fL (7.4-11.4); MONOCYTES # (AUTO) 0.5 10^3/uL (0.0-1.0); MONOCYTES % (AUTO) 10.1 %; NEUTROPHILS # (AUTO) 2.8 10^3/uL (1.5-6.6); NEUTROPHILS % (AUTO) 52.6 %; PLT - PLATELET COUNT 252 10^3/uL (130-450); RED BLOOD COUNT 5.17 10^6/uL (4.70-6.10); RED CELL DISTRIBUTION WIDTH 12.7 % (12.0-15.0); WHITE BLOOD COUNT 5.4 x10^3/uL (4.8-10.8)
[2024-07-01 08:18] LABS: THYROID STIMULATING HORMONE 4.58 uIU/mL (0.34-5.60)
== END 2024-07-01 07:15 | disposition home or self-care (01) ==
LOC: LAB 07:14
PROVIDERS: ATTEND Nurse Practitioner Family
DX: I10 Essential (primary) hypertension (principal); G47.30 Sleep apnea, unspecified; Z12.5 Encounter for screening for malignant neoplasm of prostate
CPT/HCPCS: 36415; 80053; 80061; 83721; 84153; 84443; 85025